=== PATIENT | female | born 1970 | race Caucasian/White ===

== ENCOUNTER → 2017-03-22 | Outpatient (REF) | payer OTHER ==
[~2017-03-22] MED LIST: ADV250INH INH; ALBU0.63 INH; ALBU17IN INH; CEFU500T2 PO; CLAR10CA3 PO; IBUPOTC PO; NASA1SPR; PRED20TA PO; SING10TA32 PO; SODI0.65; THEO1CAP5 PO; VITA500C24 PO; VITACAP35 PO
[2017-03-28 00:06] LABS: D001-IgE D pteronyssinus 0.38 kU/L (Class I); E001-IgE Cat Epith/Dander 0.68 kU/L (Class II); E005-IgE Dog Dander 0.43 kU/L (Class I); G002-IgE Bermuda Grass 0.41 kU/L (Class I); M001-IgE Penicillium chrysogen < 0.10 kU/L (Class 0); M002 IgE Cladosporium herbaru 0.16 kU/L (Class 0/I); M003 IgE Aspergillus fumigatu < 0.10 kU/L (Class 0); M006-IgE Alternaria alternata 0.21 kU/L (Class 0/I); T001-IgE Maple/Box Elder 0.11 kU/L (Class 0/I); T003-IgE Common Silver Birch < 0.10 kU/L (Class 0); T007-IgE Oak, White < 0.10 kU/L (Class 0); T008-IgE Elm, American < 0.10 kU/L (Class 0); T015-IgE Ash, White < 0.10 kU/L (Class 0); T041-IgE Hickory, White < 0.10 kU/L (Class 0); W001-IgE Ragweed, Short 1.12 kU/L (Class II); W009-IgE Plantain, English < 0.10 kU/L (Class 0); W014-IgE Pigweed, Rough < 0.10 kU/L (Class 0); W018-IgE Sheep Sorrel < 0.10 kU/L (Class 0)
== END ==
LOC: M LAB REF 15:54
PROVIDERS: ATTEND Internal Medicine Pulmonary Disease
DX: R09.82 Postnasal drip (principal); J44.9 Chronic obstructive pulmonary disease, unspecified; R05 Cough

== ENCOUNTER → 2017-08-23 | Outpatient (REF) | payer OTHER | LOC: M LAB REF 17:08 | PROVIDERS: ATTEND Internal Medicine Pulmonary Disease | DX: R05 Cough (principal) ==

== ENCOUNTER → 2018-04-16 | Outpatient (REF) | payer OTHER | LOC: M LAB REF 17:47 | DX: N84.0 Polyp of corpus uteri (principal) | CPT/HCPCS: 88304 ==

== ENCOUNTER → 2025-09-14 | Outpatient (CLI) | payer OTHER ==
[~2025-09-14] MED LIST changes: -ADV250INH INH; +ADVA1AER9 INH; +MONT-5 PO; -SING10TA32 PO
== END ==
LOC: M WHC 10:02
PROVIDERS: ATTEND Physician Assistant Surgical
DX: S32.018A Other fracture of first lumbar vertebra, initial encounter for closed fracture (principal); Z13.820 Encounter for screening for osteoporosis; M85.88 Other specified disorders of bone density and structure, other site; X58.XXXA Exposure to other specified factors, initial encounter; Y92.9 Unspecified place or not applicable; Y93.9 Activity, unspecified; Y99.9 Unspecified external cause status